=== PATIENT | female | born 1970 | race Caucasian/White ===

== ENCOUNTER 2016-05-22 20:40 | Emergency (ER) | payer OTHER ==
[~2016-05-22] VITALS: Ht 165.1 cm; Wt 76.5 kg
[~2016-05-22 20:40] MED LIST: ACET500T98; CYCL-319 PO; FERR27TA; HYDR-906 PO; IBUP-1542 PO; PREN1TAB12; PREN1TAB49 PO
[2016-05-22 20:43] VITALS: Ht 165.1 cm; Wt 76.5 kg
[2016-05-22] MEDS ORDERED: ACETAMINOPHEN 500 MG TAB PO STA (21:01)
[2016-05-22 21:41] LABS: BASOPHILS % 0.5 % (0.0-2.0); EOSINOPHILS # 0.1 10^3/ul (0.0-0.5); EOSINOPHILS % 1.6 % (0.0-7.0); HEMATOCRIT 36.4 % (37.0-47.0); HEMOGLOBIN 11.9 g/dl (12.0-16.0); LYMPHOCYTES # 2.9 10^3/ul (0.8-2.9); LYMPHOCYTES % 33.9 % (15.0-51.0); MEAN CORPUSCULAR HEMOGLOBIN 23.9 pg (29.0-33.0); MEAN CORPUSCULAR HGB CONC 32.6 g/dl (32.0-37.0); MEAN CORPUSCULAR VOLUME 73.3 fl (82.0-101.0); MEAN PLATELET VOLUME 9.7 fl (7.4-10.4); MONOCYTE # 0.5 10^3/ul (0.3-0.9); MONOCYTES % 6.2 % (0.0-11.0); NEUTROPHILS % 57.8 % (39.0-77.0); PLATELET COUNT 290 10^3/UL (140-440); RED BLOOD COUNT 4.96 10^6/ul (4.20-5.40); RED CELL DISTRIBUTION WIDTH 16.5 % (11.5-14.5); UNCORRECTED WBC 8.6 10^3/ul (4.8-10.8); WHITE BLOOD COUNT 8.6 10^3/ul (4.8-10.8)
[2016-05-22 21:42] LABS: CONDITION 1; LH ANALYZER COMMENTS 1
[2016-05-22 21:46] LABS: ADD UMIC YES; URINE BILIRUBIN (Dip) NEGATIVE (NEGATIVE); URINE BLOOD (Dip) 3+ (NEGATIVE); URINE GLUCOSE (Dip) NEGATIVE (NEGATIVE); URINE KETONES (Dip) NEGATIVE (NEGATIVE); URINE LEUKOCYTE ESTERASE (Dip) NEGATIVE (NEGATIVE); URINE NITRITE (Dip) NEGATIVE (NEGATIVE); URINE TOTAL PROTEIN (Dip) NEGATIVE (NEGATIVE); URINE UROBILINOGEN (Dip) 0.2 E.U./dL (0.1-1.0)
[2016-05-22 21:47] LABS: ALBUMIN 4.2 g/dl (3.3-4.9); POTASSIUM 3.6 mmol/L (3.5-5.1)
[2016-05-22 21:49] LABS: CREATININE 0.82 mg/dl (0.44-1.00)
[2016-05-22 21:50] LABS: ALBUMIN/GLOBULIN RATIO 1.16; BILIRUBIN,INDIRECT 0.3 mg/dl (0-1.1); BILIRUBIN,TOTAL 0.3 mg/dl (0.2-1.3); CALCIUM 8.9 mg/dl (8.4-10.2); TOTAL PROTEIN 7.8 g/dl (6.1-8.1)
[2016-05-22 21:53] LABS: URINE COLOR PALE PINK (YELLOW)
--- NOTE | 2016-05-22 22:02 | ERD ---
ER Documentation Chief Complaint Date/Time DATE: 05/22/16 TIME: 22:01 Chief Complaint PELVIC PAIN WITH VAGINAL BEELDING FOR PAST 2 DAYS HPI This is a 46-year-old female who presents to the emergency department stay with her son complaining of vaginal bleeding and pelvic pain for the past 3 days. Patient states she has a tubal ligation. States that she is using more than 6 pads per day. She has not had her period for 6 months. Denies any fevers or chills, nausea or vomiting. ROS All systems reviewed and are negative except as per history of present illness. Medications Home Meds Active Scripts Naproxen* (Naprosyn*) 500 Mg Tablet, 500 MG PO BID Y for PAIN AND/OR INFLAMMATION, #30 TAB Prov:ELSLIE VALDEZ PA-C 05/22/16 Hydrocodone/Acetaminophen ([place] 5-325 Tablet) 1 Each Tablet, 1 TAB PO Q6H Y for PAIN, #12 TAB Prov:LESLIE VALDEZ PA-C 05/22/16 Ibuprofen* (Motrin*) 600 Mg Tab, 600 MG PO Q6H Y for PAIN AND OR ELEVATED TEMP, #30 TAB Prov:JAIME NAYAK NP 02/29/16 Cyclobenzaprine Hcl* (Cyclobenzaprine Hcl*) 10 Mg Tablet, 10 MG PO TID, #15 TAB Prov:JAIME NAYAK [employer] 02/29/16 Hydrocodone/Acetaminophen ([place] 5-325 Tablet) 1 Each Tablet, 1 TAB PO Q6H Y for PAIN, #20 TAB Prov:JAIME NAYAK [employer] 02/29/16 Reported Medications Vits W-Ca,Fe,Fa(<1MG) () 1 Tab Tablet, TAB PO DAILY 08/26/11 Acetaminophen (Tylenol) 500 Mg Tab 04/21/11 Ferrous Sulfate (Iron) 1 Tab Tablet 05/28/10 Vit/Fe Fumarate/Fa ( 1-1 Tablet) 1 Tab Tablet 05/28/10 Allergies Allergies: Coded Allergies: No Known Allergy (Verified , 04/21/11) PMhx/Soc Medical and Surgical Hx: pt denies Medical Hx, pt denies Surgical Hx History of Surgery: Yes (C section) Anesthesia Reaction: No Hx Neurological Disorder: No Hx Respiratory Disorders: No Hx Cardiac Disorders: No Hx Psychiatric Problems: No Hx Miscellaneous Medical Probl: No Hx Alcohol Use: No Hx Substance Use: No Hx Tobacco Use: No Smoking Status: Never smoker Physical Exam Vitals Vital Signs Date Time Temp Pulse Resp B/P Pulse Ox O2 Delivery O2 Flow Rate FiO2 05/22/16 20:43 98.6 83 18 151/79 97 Physical Exam Const: No acute distress Head: Atraumatic Eyes: Normal Conjunctiva ENT: Normal External Ears, Nose and Mouth. Neck: Full range of motion..~ No meningismus. Resp: Clear to auscultation bilaterally Cardio: Regular rate and rhythm, no murmurs Abd: Soft, pelvic pain non distended. Normal bowel sounds. No right lower quadrant pain. No left lower quadrant pain. No tenderness to McBurney's. Skin: No petechiae or rashes Back: No midline or flank tenderness Ext: No cyanosis, or edema Neur: Awake and alert Psych: Normal Mood and Affect Result Diagram: 05/22/16211105/22/162111 Results 24 hrs Laboratory Tests Test 05/22/16 21:09 05/22/16 21:12 Urine Bacteria FEW Urine Bilirubin NEGATIVE Urine Clarity CLEAR Urine Color PALE PINK Urine Glucose NEGATIVE% Urine Hemoglobin 3+ Urine Ketones NEGATIVE Urine Leukocyte Esterase NEGATIVE Urine Microscopic RBC 25-50/HPF Urine Microscopic WBC 0-2/HPF Urine Nitrite NEGATIVE Urine Specific [place] <=1.005 Urine Squamous Epithelial Cells FEW Urine Total Protein NEGATIVE Urine Urobilinogen 0.2 E.U./dL Urine pH 6.0 Alanine Aminotransferase (ALT/SGPT) 39IU/L Albumin 4.2g/dl Albumin/Globulin Ratio 1.16 Alkaline Phosphatase 102IU/L Anion Gap 18 Aspartate Amino Transf (AST/SGOT) 30IU/L Basophils # 0.010^3/ul Basophils % 0.5% Blood Morphology Comment Blood Urea Nitrogen 8mg/dl Calcium Level 8.9mg/dl Carbon Dioxide Level 28mmol/L Chloride Level 103mmol/L Creatinine 0.82mg/dl Direct Bilirubin 0.00mg/dl Eosinophils # 0.110^3/ul Eosinophils % 1.6% Globulin 3.60g/dl Glucose Level 96mg/dl Hematocrit 36.4% Hemoglobin 11.9g/dl Indirect Bilirubin 0.3mg/dl Lipase 217U/L Lymphocytes # 2.910^3/ul Lymphocytes % 33.9% Mean Corpuscular Hemoglobin 23.9pg Mean Corpuscular Hemoglobin Concent 32.6g/dl Mean Corpuscular Volume 73.3fl Mean Platelet Volume 9.7fl Monocytes # 0.510^3/ul Monocytes % 6.2% Neutrophils # 5.010^3/ul Neutrophils % 57.8% Nucleated Red Blood Cells # 0.010^3/ul Nucleated Red Blood Cells % 0.0/100WBC Platelet Count 77951^3/UL Potassium Level 3.6mmol/L Red Blood Count 4.9610^6/ul Red Cell Distribution Width 16.5% Sodium Level 145mmol/L Total Bilirubin 0.3mg/dl Total Protein 7.8g/dl White Blood Count 8.610^3/ul Current Medications Medications (Trade) Dose Ordered Sig/Vipul Route PRN Reason Start Time Stop Time Status Last Admin Dose Admin Acetaminophen (Tylenol Tab) 500 mg ONCE STAT PO 05/22/16 21:01 05/22/16 21:03 DC 05/22/16 21:15 DIAGNOSTIC IMAGING REPORT Patient: QIAN SOLANO : 1970 Age: 46 Sex: F MR #: [id number] DOS: 05/22/162100 Ordering MD: LESLIE VALDEZ PA-C Location: [facility] Room/Bed: PROCEDURE: US Pelvis. CLINICAL INDICATION: Vaginal bleeding. TECHNIQUE: The pelvis was evaluated with transabdominal sonography in the axial and sagittal planes. COMPARISON: No prior study is available for comparison. FINDINGS: Uterus: 7.8 x 5.2 x 6.3 cm. Endometrium: 10.9 mm. Right ovary: 3.5 x 1.7 x 2.2 cm. Left ovary: 7.2 x 3.9 x 6.0 cm. Uterine masses: None. Ovarian masses: The right ovary is normal. There is a benign-appearing left ovarian cyst measuring 5.0 x 3.4 x 4.8 cm. There are no internal echoes or septations. Color Doppler and pulsed Doppler sonography demonstrate normal flow to the ovaries. Other pelvic masses: None. Free fluid: None. IMPRESSION: 1. Benign-appearing left ovarian cyst measuring 5.0 x 3.4 x 4.8 cm. Follow-up ultrasound in 6 weeks is advised. 2. Otherwise unremarkable study. RPTAT: QQ .Robert Casanova MD, MD Date Time Electronically viewed and signed by .Robert Casanova MD, MD on 05/22/2016 22:45 .R/ CC: LESLIE VALDEZ PA-C Procedures/MDM This 46 old female who presents to the emergency department today complaining of vaginal bleeding for the past 3 days as well as pelvic pain. Given the patient's complaint I did obtain laboratory work as well as imaging. Urine test is negative Laboratory work shows no elevated white blood cell count. Her hemoglobin and hematocrit is mildly decreased. Her platelets are within normal limits. Her sodium is very mildly elevated otherwise electrolytic through the normal limits. Liver functions within normal limits. Lipase is within normal limits. UA negative for infection Non-OB ultrasound shows a benign appearing left ovarian cyst measuring 5 x 3.4 x 4.8 cm. A follow-up ultrasound in 6 weeks is advised. Right ovary is normal. There are no ovarian masses. There is normal flow to the ovaries. Low suspicion for ectopic , tubo-ovarian abscess, ovarian torsion. Patient's symptoms at this time is consistent with dysfunctional uterine bleeding or it may be the patient's usual menstrual cycle that she has not had for 6 months.. There is no evidence of fibroids. Explained all of the results to the patient and her son. She is in understanding. She stated that she does have an appointment with her [facility] next week. Patient is hemodynamically stable. There is no need for transfusion at this time. She was given Tylenol here in the emergency department and pain was controlled. I did offer to give her stronger pain medication however patient stated that her pain was okay at the moment. She was given a prescription for [place] and Naprosyn for home. She is instructed to follow-up with her [facility] as planned. At this time the patient is stable for discharge and outpatient management. Patient should follow up with their PCP in the next 1-2 days. They may return to the emergency department sooner for any persistent or worsening of symptoms. Patient understood and agreed with the plan. Departure Diagnosis: Primary Impression: Vaginal bleeding Condition: LESLIE Barros PA-C May 22, 2016 22:02
[2016-05-22 22:21] LABS: BACTERIA,URINE FEW; SQUAMOUS EPITHELIAL CELL,UR FEW
[2016-05-22 22:22] LABS: URINE RBCS 25-50 /HPF (0)
--- NOTE | 2016-05-22 22:45 | RADRPT ---
PROCEDURE: US Pelvis. CLINICAL INDICATION: Vaginal bleeding. TECHNIQUE: The pelvis was evaluated with transabdominal sonography in the axial and sagittal plane s. COMPARISON: No prior study is available for comparison. FINDINGS: Uterus: 7.8 x 5.2 x 6.3 cm. Endometrium: 10.9 mm. Right ovary: 3.5 x 1.7 x 2.2 cm. Left ovary: 7.2 x 3.9 x 6.0 cm. Uterine masses: None. Ovarian masses: The right ovary is normal. There is a benign-appearing left ovarian cyst measuring 5.0 x 3.4 x 4.8 cm. There are no internal echoes or septations. Color Doppler and pulsed Doppler so nography demonstrate normal flow to the ovaries. Other pelvic masses: None. Free fluid: None. IMPRESSION: 1. Benign-appearing left ovarian cyst measuring 5.0 x 3.4 x 4.8 cm. Follow-up ultrasound in 6 week s is advised. 2. Otherwise unremarkable study. RPTAT: QQ .Robert Casanova MD, Date Time Electronically viewed and signed by .Robert Casanova MD, on 05/22/2016 22:45 .R/
[2016-05-22] MEDS ORDERED: HYDR-906 PO (22:59)
[2016-05-22] MEDS ORDERED: NAPR-260 PO (22:59)
[2016-05-22 23:06] VITALS: BP 127/84; PULSE 86; RESP 18; TEMP 98.3
== END 2016-05-22 23:06 | disposition home or self-care (01) ==
LOC: FTE 20:40
DX: N93.9 Abnormal uterine and vaginal bleeding, unspecified (principal); R10.2 Pelvic and perineal pain
CPT/HCPCS: 36415; 76856; 80053; 81001; 83690; 85025; Z7502; Z7610; 81003

== ENCOUNTER 2017-08-30 17:13 | Emergency (ER) | END 2017-08-30 22:18 | disposition home or self-care (01) ==

== ENCOUNTER 2017-09-03 00:05 | Emergency (ER) | END 2017-09-03 05:00 | disposition home or self-care (01) ==

== ENCOUNTER 2017-10-25 22:24 | Emergency (ER) | END 2017-10-26 08:42 | disposition home or self-care (01) ==